=== PATIENT | male | born 1995 | race Caucasian/White ===

== ENCOUNTER 2018-10-28 18:37 | Emergency (ER) | payer OTHER ==
[~2018-10-28] VITALS: Ht 175.3 cm; Wt 97.5 kg
--- OUTSIDE RECORDS SUMMARY | 2018-10-28 18:40 | XMS REPORT | Summary of Care ---
Author Author Urgent Care [facility] Address Unknown Phone Unavailable Encounter MARGY Morales([place]) [id number] Date(s): 10/05/18 - 10/05/18 Urgent [facility] [address] [place] [address]- Discharge Disposition: Home or Self Care Attending Physician: Luis Lu DO Vital Signs Most recent to 1 oldest [Reference Range]: Height 175.26 cm (10/05/18 12:26 PM) Temperature Oral 98.2 DegF [96.4-99.1 DegF] (10/05/18 12:26 PM) Blood Pressure 113/71 mmHg [90-140/60-90 mmHg] (10/05/18 12:26 PM) Respiratory Rate 18 BRMIN [14-20 BRMIN] (10/05/18 12:26 PM) Peripheral Pulse 72 bpm Rate [60-100 bpm] (10/05/18 12:26 PM) Weight 98.636 kg (10/05/18 12:26 PM) Body Mass Index 32.11 m2 (10/05/18 12:26 PM) Problem List Condition Effective Dates Status Health Status Informant Anxiety(Confirmed) Active Chronic Active prostatitis(Confirme d) Left Resolved epididymitis(Confirm ed) Neuropathy(Confirmed Active ) Testicle Active pain(Confirmed) Treponemal Active infection(Confirmed) Vertigo(Confirmed) Active Allergies, Adverse Reactions, Alerts Substance Reaction Severity Status cephalosporins Active penicillins Active penciclovir topical PENICILLINS Active Medications clarithromycin 250 mg oral tablet 250 mg=1 tab, PO, Q12H, X 10 day, # 20 tab, 0 Refill(s), Pharmacy: [facility] [place] [facility] Start Date: 10/05/18 Stop Date: 10/15/18 Status: Ordered Results No data available for this section Immunizations No data available for this section Procedures Procedure Date Related Diagnosis Body Site Status Tonsillectomy1 Completed 1Had procedure in 2016 Social History Social History Type Response Employment/School Status: Employed. 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 Smoking Status Never smoker; Ready to change: No; Concerns about tobacco use in household: No; Exposure to Tobacco Smoke None; Cigarette Smoking Last 365 Days No; Reg Smoking Cessation Counseling No entered on: 10/05/18 Assessment and Plan No data available for this section
--- OUTSIDE RECORDS SUMMARY | 2018-10-28 18:40 | XMS REPORT | Summary of Care ---
Author Author [facility] Organization [facility] Address Unknown Phone Unavailable Encounter HQ Encntr_alinadia(FIN) [id number] Date(s): 09/08/18 - 09/09/18 [facility] [address], [address] [place] [address]- [phone] Vital Signs No data available for this section Problem List Condition Effective Dates Status Health Status Informant Anxiety(Confirmed) Active Chronic Active prostatitis(Confirme d) Left Resolved epididymitis(Confirm ed) Neuropathy(Confirmed Active ) Testicle Active pain(Confirmed) Treponemal Active infection(Confirmed) Vertigo(Confirmed) Active Allergies, Adverse Reactions, Alerts Substance Reaction Severity Status cephalosporins Active penicillins Active penciclovir topical PENICILLINS Active Medications No data available for this section Results No data available for this section Immunizations No data available for this section Procedures Procedure Date Related Diagnosis Body Site Status Tonsillectomy1 Completed 1Had procedure in 2016 Social History Social History Type Response Employment/School Status: Employed. 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 Smoking Status Never smoker; Ready to change: No; Concerns about tobacco use in household: No; Exposure to Tobacco Smoke None; Cigarette Smoking Last 365 Days No; Reg Smoking Cessation Counseling No entered on: 08/24/18 Assessment and Plan No data available for this section
--- OUTSIDE RECORDS SUMMARY | 2018-10-28 18:40 | XMS REPORT | Summary of Care ---
Author Author [facility] U[facility] Organization [facility] Address Unknown Phone Unavailable Encounter HQ Encntr_alias(FIN) [id number] Date(s): 08/09/18 - 08/10/18 [facility] [address] [place], [place] [address] Vital Signs No data available for this section Problem List Condition Effective Dates Status Health Status Informant Chronic Active prostatitis(Confirme d) Left Active epididymitis(Confirm ed) Allergies, Adverse Reactions, Alerts Substance Reaction Severity Status cephalosporins Active penicillins Active penciclovir topical PENICILLINS Active Medications No data available for this section Results No data available for this section Immunizations No data available for this section Procedures Procedure Date Related Diagnosis Body Site Status Tonsillectomy1 Completed 1Had procedure in 2016 Social History Social History Type Response Smoking Status Never smoker; Ready to change: No; Concerns about tobacco use in household: No; Exposure to Tobacco Smoke None; Cigarette Smoking Last 365 Days No; Reg Smoking Cessation Counseling No entered on: 07/29/18 Assessment and Plan No data available for this section
--- OUTSIDE RECORDS SUMMARY | 2018-10-28 18:40 | XMS REPORT | Summary of Care ---
Author Author Urgent Care [facility] Address Unknown Phone Unavailable Encounter MARGY Morales([place]) [id number] Date(s): 09/23/18 - 09/23/18 [facility] [address] [place] [address] [phone] Discharge Disposition: Home or Self Care Attending Physician: Jelly Stevenson MD Vital Signs Most recent to 1 oldest [Reference Range]: Height 175.26 cm (09/23/18 9:34 AM) Temperature Oral 98.2 DegF [96.4-99.1 DegF] (09/23/18 9:34 AM) Blood Pressure 123/78 mmHg [90-140/60-90 mmHg] (09/23/18 9:34 AM) Peripheral Pulse 67 bpm Rate [60-100 bpm] (09/23/18 9:34 AM) Weight 98.636 kg (09/23/18 9:34 AM) Body Mass Index 32.11 m2 (09/23/18 9:34 AM) Problem List Condition Effective Dates Status Health Status Informant Anxiety(Confirmed) Active Chronic Active prostatitis(Confirme d) Left Resolved epididymitis(Confirm ed) Neuropathy(Confirmed Active ) Testicle Active pain(Confirmed) Treponemal Active infection(Confirmed) Vertigo(Confirmed) Active Allergies, Adverse Reactions, Alerts Substance Reaction Severity Status cephalosporins Active penicillins Active penciclovir topical PENICILLINS Active Medications Azithromycin 5 Day Dose Pack 250 mg oral tablet See Instructions, Take 2 tablets by mouth the first day then 1 tablet by mouth d ays 2-5., X 5 day, # 6 tab, 0 Refill(s), Pharmacy: [facility] [place] [facility] Start Date: 09/23/18 Stop Date: 09/28/18 Status: Ordered Flonase 0.05 mg/inh nasal spray 2 spray, NASAL, Daily, in each nostril, # 16 gm, 0 Refill(s), Pharmacy: [facility] Start Date: 09/23/18 Status: Ordered Results No data available for this section Immunizations No data available for this section Procedures Procedure Date Related Diagnosis Body Site Status Tonsillectomy1 Completed 1Had procedure in 2016 Social History Social History Type Response Employment/School Status: Employed. 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 Smoking Status Never smoker; Ready to change: No; Concerns about tobacco use in household: No; Exposure to Tobacco Smoke None; Cigarette Smoking Last 365 Days No; Reg Smoking Cessation Counseling No entered on: 09/23/18 Assessment and Plan No data available for this section
--- OUTSIDE RECORDS SUMMARY | 2018-10-28 18:40 | XMS REPORT | Summary of Care ---
Author Author [facility] Organization [facility] Address Unknown Phone Unavailable Encounter HQ Encntr_alinadia(FIN) [id number] Date(s): 08/31/18 - 09/01/18 [facility] [address], [address] [place] [address]- [phone] Vital Signs No data available for this [...] Employment/School Status: Employed. 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 Smoking Status Never smoker; Ready to change: No; Concerns about tobacco use in household: No; Exposure to Tobacco Smoke None; Cigarette Smoking Last 365 Days No; Reg Smoking Cessation Counseling No entered on: 08/24/18 Assessment and Plan No data available for this section
--- OUTSIDE RECORDS SUMMARY | 2018-10-28 18:40 | XMS REPORT | Summary of Care ---
Author Author [facility] Organization [facility] Address Unknown Phone Unavailable Encounter HQ Encntr_alinadia(FIN) [id number] Date(s): 09/08/18 - 09/09/18 [facility] [address], [address] [place] [address]- [phone] Vital Signs No data available for this [...] Employment/School Status: Employed. 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 Smoking Status Never smoker; Ready to change: No; Concerns about tobacco use in household: No; Exposure to Tobacco Smoke None; Cigarette Smoking Last 365 Days No; Reg Smoking Cessation Counseling No entered on: 08/24/18 Assessment and Plan No data available for this section
--- OUTSIDE RECORDS SUMMARY | 2018-10-28 18:40 | XMS REPORT | Summary of Care ---
Author Author [facility] Organization [facility] Address Unknown Phone Unavailable Encounter MARGY Morales([place]) [id number] Date(s): 09/07/18 - 09/07/18 [facility] [address] [place] [address]- Discharge Disposition: Home or Self Care Attending Physician: Na Hansen DO Referring Physician: Na Hansen DO Vital Signs No data available for this [...] Employment/School Status: Employed. 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 Smoking Status Never smoker; Ready to change: No; Concerns about tobacco use in household: No; Exposure to Tobacco Smoke None; Cigarette Smoking Last 365 Days No; Reg Smoking Cessation Counseling No entered on: 08/24/18 Assessment and Plan No data available for this section
--- OUTSIDE RECORDS SUMMARY | 2018-10-28 18:40 | XMS REPORT | Summary of Care ---
Author Author [facility] Organization [facility] Address Unknown Phone Unavailable Encounter MARGY Morales([place]) [id number] Date(s): 10/17/18 - 10/17/18 [facility] [address] [place] [address]- [phone] Discharge Disposition: Home or Self Care Attending Physician: Jacqui Martinez MD Vital Signs Most recent to 1 oldest [Reference Range]: Height 175.26 cm (10/17/18 3:33 PM) Temperature Oral 98.3 DegF [96.4-99.1 DegF] (10/17/18 3:33 PM) Blood Pressure 113/76 mmHg [90-140/60-90 mmHg] (10/17/18 3:33 PM) Peripheral Pulse 73 bpm Rate [60-100 bpm] (10/17/18 3:33 PM) Weight 98.864 kg (10/17/18 3:33 PM) Body Mass Index 32.19 m2 (10/17/18 3:33 PM) Problem List Condition Effective Dates Status Health Status Informant Anxiety(Confirmed) Active Chronic Active prostatitis(Confirme d) Left Resolved epididymitis(Confirm ed) Neuropathy(Confirmed Active ) Testicle Active pain(Confirmed) Treponemal Active infection(Confirmed) Vertigo(Confirmed) Active Allergies, Adverse Reactions, Alerts Substance Reaction Severity Status cephalosporins Active penicillins Active penciclovir topical PENICILLINS Active Medications No Known Medications Results No data available for this section Immunizations No data available for this section Procedures Procedure Date Related Diagnosis Body Site Status Tonsillectomy1 Completed 1Had procedure in 2016 Social History Social History Type Response Employment/School Status: Employed. 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 Smoking Status Never smoker; Ready to change: No; Concerns about tobacco use in household: No; Exposure to Tobacco Smoke None; Cigarette Smoking Last 365 Days No; Reg Smoking Cessation Counseling No entered on: 10/17/18 Assessment and Plan No data available for this section
--- OUTSIDE RECORDS SUMMARY | 2018-10-28 18:40 | XMS REPORT | Summary of Care ---
Author Author [facility] Organization [facility] Address Unknown Phone Unavailable Encounter MARGY Morales(FIN) [id number] Date(s): 10/10/18 - 10/10/18 [facility] [address] [place] [address]- [phone] Attending Physician: Jacqui Martinez MD Vital Signs No data available for this [...] Employment/School Status: Employed. 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 Smoking Status Never smoker; Ready to change: No; Concerns about tobacco use in household: No; Exposure to Tobacco Smoke None; Cigarette Smoking Last 365 Days No; Reg Smoking Cessation Counseling No entered on: 10/05/18 Assessment and Plan No data available for this section
--- OUTSIDE RECORDS SUMMARY | 2018-10-28 18:40 | XMS REPORT | Continuity of Care Document ---
Author Author [facility] Interface Address Unknown Phone Unavailable Problems Problem Status Onset Date Classification Date Reported Comments Source TESTICLE PAIN Active 09/02/2018 [facility] TESTICLE PAIN Active 09/02/2018 [facility] RIGHT ABDOMINAL PAIN Active 05/08/2018 [facility] RIGHT ABDOMINAL PAIN Active 05/08/2018 [facility] Other specified disorders of the male genital organs 10/28/2017 01/05/2018 [facility] [place] N50.8 - OTHER SPECIFIED DISORDERS OF M Active 09/23/2017 [facility] [place] Anxiety Active Problem 10/19/2018 [facility], [facility] [place] Chronic prostatitis Active Problem 10/19/2018 [facility], [facility] [place] Left epididymitis Resolved Problem 10/19/2018 [facility], [facility] [place] Neuropathy Active Problem 10/19/2018 [facility], [facility] [place] Testicle pain Active Problem 10/19/2018 [facility], [facility] [place] Treponemal infection Active Problem 10/19/2018 [facility], [facility] [place] Vertigo Active Problem 10/19/2018 [facility], [facility] [place] Medications Medication Details Route Status Patient Instructions Ordering Provider Order Date Source clarithromycin 250 mg oral tablet 250 mg=1 tab, PO, Q12H, X 10 day, # 20 tab, 0 Refill(s), Pharmacy: [facility] [place] [facility] Active 10/05/2018 [facility] Fluticasone propionate 0.05 MG/ACTUAT Metered Dose Nasal [place] [Flonase] 2 spray, NASAL, Daily, in each nostril, # 16 gm, 0 Refill(s), Pharmacy: [facility] [place] [facility] Active 09/23/2018 [facility] Azithromycin 5 Day Dose Pack 250 mg oral tablet See Instructions, Take 2 tablets by mouth the first day then 1 tablet by mouth days 2-5., X 5 day, # 6 tab, 0 Refill(s), Pharmacy: [facility] [place] #3 Active 09/23/2018 [facility] doxycycline hyclate 100 MG Oral Capsule 100 mg=1 cap, PO, BID, 0 Refill(s) Active 08/24/2018 [facility] Ketorolac Tromethamine 10 MG Oral Tablet 10 mg=1 tab, PO, Q6H, X 5 day, # 20 tab, 0 Refill(s), Pharmacy: [facility] [place] #[facility] Active 08/20/2018 [facility] naproxen 500 mg oral enteric coated delayed-release tablet 500 mg=1 tab, PO, BID, PRN Pain, X 15 day, # 30 tab, 0 Refill(s), Pharmacy: [facility] Active 12/29/2017 [facility] clindamycin 300 mg oral capsule 300 mg=1 cap, PO, Q6H, X 10 day, # 40 cap, 0 Refill(s), Pharmacy: [facility] Active 12/29/2017 [facility] Allergies, Adverse Reactions, Alerts Substance Category Reaction Severity Reaction type Status Date Reported Comments Source cephalosporins Assertion Drug allergy Active [facility] penicillins Assertion Drug allergy Active [facility] penciclovir topical Assertion PENICILLINS Drug allergy Active [facility] Immunizations Immunization Date Given Site Status Last Updated Comments Source Results Order Name Results Value Reference Range Date Interpretation Comments Source Brain w/wo contrast MRI Brain w/wo contrast MRI Patient Name: ARAM NAVARRETE : 1995; Age: 23 years y/o Male MR: [id number] Study: Brain w/wo contrast MRI 09/29/2018 2:59 PM CDT Ordering Physician: Damir Franco MD Clinical Indication: - R20.2 Paresthesia of skin; Comparison: None TECHNIQUE: Multiplanar pre- and post-gadolinium contrast-enhanced MRI of the brain is performed. Contrast: 20 cc of gadolinium was administered. FINDINGS: The brain parenchyma is unremarkable. There is no evidence of acute intracranial hemorrhage, acute or subacute infarct, mass, focal edema, midline shift or extra-axial fluid collection. The ventricles and basilar cisterns are unremarkable. There is no abnormal meningeal or parenchymal enhancement. The craniocervical junction and midline structures are unremarkable. The central intracranial flow voids are maintained. The visualized orbits, paranasal sinuses and mastoids are unremarkable. IMPRESSION: 1. Unremarkable pre- and postcontrast MRI of the brain without evidence of acute intracranial process. SL: [id number] 09/29/2018 - - Read by: Danyell Cleary Dictated Date/time: 09/29/18 21:30 Electronically Signed by: Danyell Cleary 09/29/18 21:32 FINAL REPORT [facility] [place] Scrotal/Testicle w Doppler US Scrotal/Testicle w Doppler US Patient Name: ARAM NAVARRETE : 1995; Age: 23 years Male MR: [id number] Study: Scrotal/Testicle w Doppler US 09/07/2018 13:20 [employer] Clinical Indication: Left scrotal pain. COMPARISON: 09/29/2017 TECHNIQUE: Sonographic evaluation of the scrotum and testes was performed using high resolution B-mode imaging as well as pulse and color Doppler imaging. FINDINGS: TESTES: The right testicle measures 4.6 x 2.1 x 3.8 cm. The left testicle measures 4.7 x 2.1 x 3.6 cm. There is normal bilateral testicular contour and morphology. There are no testicular masses. There are no testicular calcifications. The Doppler images of the testicles show normal blood flow. EPIDIDYMIDES: Bilateral epididymal head, body and tail regions are normal. 5 mm right epididymal cyst. SCROTUM: There is no hydrocele. Bilateral varicoceles, some of the veins have no color flow. There is no scrotal edema. IMPRESSION: 1. Normal testicular Doppler blood flow. 2. Bilateral varicoceles, some of which do not demonstrate color flow. This could be secondary to thrombosed varicoceles, slow flow. SL: [id number] 09/07/2018 - - Read by: Guy See MD Dictated Date/time: 09/08/18 07:36 Electronically Signed by: Guy See MD 09/08/18 07:40 FINAL REPORT [facility] ED Abdomen/Pelvis IV contrast only CT ED Abdomen/Pelvis IV contrast only CT Patient Name: ARAM NAVARRETE : 1995; Age: 23 years y/o Male MR: [id number] * I. COMPUTED TOMOGRAPHY SCAN OF THE ABDOMEN with contrast. * II. COMPUTED TOMOGRAPHY SCAN OF THE PELVIS with contrast HISTORY: Right lower quadrant abdominal pain. COMPARISON: None TECHNIQUE: I. COMPUTED TOMOGRAPHY SCAN OF THE ABDOMEN with contrast: Helical CT images were obtained on a multidetector computed tomography scanner from the domes the diaphragms to the iliac crests following the intravenous administration of nonionic iodinated contrast. Oral contrast was not provided. II. COMPUTED TOMOGRAPHY SCAN OF THE PELVIS with contrast: Helical CT images were obtained on a multidetector computed tomography scanner from the iliac crests to the pubic symphysis following the intravenous administration of nonionic iodinated contrast. Oral contrast was not provided. Coronal and sagittal reconstructions were obtained. CT imaging performed at this location utilizes radiation dose optimization techniques which include one or more of the following: -Automated exposure control. -Adjustment of the mA and/or kV according to patient size. -Use of iterative reconstruction technique. CT radiation dose DLP: 1024 mGy-cm FINDINGS: There is no evidence of an acute intra-abdominal process. There is no free intraperitoneal gas, significant intra-abdominal fluid, or hemorrhage. There is a tiny (3 mm) right hepatic lobe cyst (image 21 of series 2). The liver, spleen, pancreas, and adrenal glands are otherwise normal in appearance. The kidneys are normal in size and show good, symmetrical enhancement without hydronephrosis. No calculi or focal renal lesions are visualized. The gastrointestinal structures are unremarkable. There is no evidence of obstruction or ileus. A normal appendix is visualized. There is no evidence of appendicitis. Evaluation of the gastrointestinal structures is limited due to lack of oral contrast. No mass or adenopathy is seen within the abdomen or pelvis. The aorta is normal in caliber. The visualized lung bases are clear. There are no pleural effusions. The heart is normal in size. There is no pericardial effusion. The osseous structures are unremarkable. IMPRESSION: 1. Negative computed tomography scan of the abdomen and pelvis. There is no evidence of an acute or significant focal intra-abdominal process. 2. Note is made of a tiny right hepatic cyst. SL: [id number] 05/08/2018 - - Read by: Zach Fraser MD Dictated Date/time: 05/08/18 15:10 Electronically Signed by: Zach Fraser MD 05/08/18 15:16 FINAL REPORT [facility] Scrotal/Testicle US Scrotal/Testicle US HISTORY: Right testicular pain and lump - N50.8 Testicular pain TECHNIQUE: Multiple huddleston scale and color flow Doppler sonographic images of the testicles were obtained. COMPARISON: None available. FINDINGS: The testicles demonstrate symmetric color flow. The testicles are normal in size, contour, and echogenicity. The right testicle measures 4.7 x 1.9 x 3.2 cm and the left testicle measures 4.4 x 1.9 x 3 cm. No evidence of intraparenchymal testicular mass. The epididymides are normal in size, contour, and echogenicity. There is a subcentimeter cyst versus spermatocele in the right epididymal head which corresponds to patient's region of palpable concern. IMPRESSION: Unremarkable sonographic evaluation of the testicles. [id number] 09/29/2017 - - Read by: Antione Desai MD Dictated Date/time: 09/29/17 17:28 Electronically Signed by: Antione Desai MD 09/29/17 17:29 FINAL REPORT [facility] Chest 2 views DX Chest 2 views DX Clinical Indication: - chest pain with inspiration. Comparison: None. Technique: PA and lateral chest radiographs FINDINGS: LUNGS: The lungs are well inflated. No interstitial or airspace opacities. No pleural effusions or pneumothorax. HEART AND MEDIASTINUM: The cardiomediastinal silhouette and pulmonary vascularity are within normal limits. The trachea is midline. OSSEOUS STRUCTURES: No acute abnormality seen. IMPRESSION: 1. No acute cardiopulmonary disease. SL: [id number] 05/14/2017 - - Read by: Issa Fields MD Dictated Date/time: 05/14/17 12:49 Electronically Signed by: Issa Fields MD 05/14/17 12:49 FINAL REPORT [facility] Vital Signs Vital Sign Value Date Comments Source Weight 98.864 10/17/2018 [facility] BMI Calculated 32.19 10/17/2018 [facility] Height 175.26 cm 10/17/2018 [facility] Temperature Oral (F) 98.3 F 10/17/2018 [facility] Heart Rate 73 10/17/2018 [facility] Systolic (mm Hg) 113 10/17/2018 [facility] Diastolic (mm Hg) 76 10/17/2018 [facility] BMI Calculated 32.11 10/05/2018 [facility] Height 175.26 cm 10/05/2018 [facility] Weight 98.636 10/05/2018 [facility] Temperature Oral (F) 98.2 F 10/05/2018 [facility] Respitory Rate 18 10/05/2018 [facility] Heart Rate 72 10/05/2018 [facility] Systolic (mm Hg) 113 10/05/2018 [facility] Diastolic (mm Hg) 71 10/05/2018 [facility] BMI Calculated 32.11 09/23/2018 [facility] Weight 98.636 09/23/2018 [facility] Height 175.26 cm 09/23/2018 [facility] Temperature Oral (F) 98.2 F 09/23/2018 [facility] Heart Rate 67 09/23/2018 [facility] Systolic (mm Hg) 123 09/23/2018 [facility] Diastolic (mm Hg) 78 09/23/2018 [facility] BMI Calculated 32.7 08/24/2018 [facility] Weight 100.455 08/24/2018 [facility] Height 175.26 cm 08/24/2018 [facility] Temperature Oral (F) 98.5 F 08/24/2018 [facility] Respitory Rate 14 08/24/2018 [facility] Systolic (mm Hg) 126 08/24/2018 [facility] Diastolic (mm Hg) 78 08/24/2018 [facility] Heart Rate 76 08/24/2018 [facility] BMI Calculated 31.59 12/29/2017 [facility] Height 175.26 cm 12/29/2017 [facility] Weight 97.045 12/29/2017 [facility] Respitory Rate 16 12/29/2017 [facility] Temperature Oral (F) 98.0 F 12/29/2017 [facility] Systolic (mm Hg) 126 12/29/2017 [facility] Diastolic (mm Hg) 67 12/29/2017 [facility] Heart Rate 85 12/29/2017 [facility] Encounters Location Location Details Encounter Type Encounter Number Reason For Visit Attending Provider ADM Date DC Date Status Source Outpatient [id number] MER JUINOR 05/07/2017 Active [facility] Outpatient [id number] EDVIN MENDEZ 05/14/2017 Active [facility] [place] [facility] [id number] Romulo Conway 09/29/2017 09/30/2017 [facility] [place] Outpatient [id number] JODI REGAN 12/29/2017 Active [facility] Outpatient [id number] Mer Junior 12/29/2017 12/30/2017 [facility] Outpatient [id number] JODI ISMAIL 04/20/2018 Active [facility] Outpatient [id number] JELLY JETT 05/08/2018 Active [facility] Outpatient [id number] JODI ISMAIL 06/06/2018 Active [facility] Outpatient [id number] LUIS KOTHARIEN 06/28/2018 Active [facility] Outpatient [id number] ORA ODOM 07/29/2018 Active [facility] Urology [facility] Phone Message [id number] 08/09/2018 08/11/2018 [facility] Phone Message [id number] 08/17/2018 08/19/2018 [facility] Outpatient [id number] MERE WHALEN 08/24/2018 Active [facility] [place] Outpatient [id number] Mere Walshh 08/24/2018 08/25/2018 [facility] Primary [facility] Phone Message [id number] 08/31/2018 09/02/2018 [facility] Outpatient [id number] Mere Walshh 09/07/2018 09/08/2018 [facility] Between Visit [id number] 09/08/2018 09/09/2018 [facility] Between Visit [id number] 09/08/2018 09/09/2018 [facility] Between Visit [id number] 09/08/2018 09/09/2018 [facility] Outpatient [id number] WILLIS GEORGE 09/23/2018 Active [facility] [place] Outpatient [id number] Jelly Jett 09/23/2018 09/24/2018 [facility] Group [facility] [place] [facility] [id number] Damir Franco II 09/29/2018 09/30/2018 [facility] [place] Outpatient [id number] Luis Mcdonald 10/05/2018 Active [facility] [place] Outpatient [id number] Smith Mcdonald 10/05/2018 10/06/2018 [facility] Outpatient [id number] Firas Quddos 10/10/2018 Active [facility] [place] Ambulatory Pre-Reg [id number] Firas Quddos 10/10/2018 10/10/2018 [facility] Outpatient [id number] Firas Quddos 10/17/2018 Active [facility] [place] Outpatient [id number] Firas Quddos 10/17/2018 10/18/2018 [facility] Procedures Procedure Code Date Perfomer Comments Source Tonsillectomy<sup>1</sup> 403288743 Had procedure in 2016 [facility] Tonsillectomy<sup>1</sup> [id number] Had procedure in 2016 [facility] Tonsillectomy<sup>1</sup> [id number] Had procedure in 2016 [facility] Tonsillectomy<sup>1</sup> [id number] Had procedure in 2016 [facility] [place]
--- OUTSIDE RECORDS SUMMARY | 2018-10-28 18:40 | XMS REPORT | Summary of Care ---
Author Author [facility] Organization [facility] Address Unknown Phone Unavailable Encounter HQ Encntr_alinadia(FIN) [id number] Date(s): 09/08/18 - 09/09/18 [facility] [address], [address] [place] [address]- [phone] Vital Signs No data available for this [...] Employment/School Status: Employed. 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 Smoking Status Never smoker; Ready to change: No; Concerns about tobacco use in household: No; Exposure to Tobacco Smoke None; Cigarette Smoking Last 365 Days No; Reg Smoking Cessation Counseling No entered on: 08/24/18 Assessment and Plan No data available for this section
--- OUTSIDE RECORDS SUMMARY | 2018-10-28 18:40 | XMS REPORT | Summary of Care ---
Author Author [facility] Organization [facility] Address Unknown Phone Unavailable Encounter HQ Nicontr_jayne(FIN) [id number] Date(s): 08/17/18 - 08/18/18 [facility] U[facility] [address] [place], [place] [address] Vital Signs No data available for this section Problem List Condition Effective Dates Status Health Status Informant Chronic Active prostatitis(Confirme d) Left Active epididymitis(Confirm ed) Allergies, Adverse Reactions, Alerts Substance Reaction Severity Status cephalosporins Active penicillins Active penciclovir topical PENICILLINS Active Medications ketOROLAC 10 mg oral tablet 10 mg=1 tab, PO, Q6H, X 5 day, # 20 tab, 0 Refill(s), Pharmacy: [facility] [place] [facility] Start Date: 08/19/18 Stop Date: 08/24/18 Status: Ordered Results No data available for [...]
--- OUTSIDE RECORDS SUMMARY | 2018-10-28 18:40 | XMS REPORT | Summary of Care ---
Author Author [facility] [place] Organization [facility] [place] Address Unknown Phone Unavailable Encounter HQ Jose Mr_jayne(FIN) [id number] Date(s): 09/29/17 - 09/29/17 [facility] [place] [address] [place], [place] [address] [phone] Encounter Diagnosis Other specified disorders of the male genital organs (Final) - 10/27/17 Discharge Disposition: Home or Self Care Attending Physician: Romulo Conway MD Vital Signs No data available for this section Problem List No data available for this section Allergies, Adverse Reactions, Alerts Substance Reaction Severity Status cephalosporins Active penicillins Active penciclovir topical PENICILLINS Active Medications No data available for this section Results No data available for this section Immunizations No data available for this section Procedures Procedure Date Related Diagnosis Body Site Status Tonsillectomy1 Completed 1Had procedure in 2016 Social History Social History Type Response Smoking Status Never smoker; Exposure to Tobacco Smoke None; Cigarette Smoking Last 365 Days No; Reg Smoking Cessation Counseling No entered on: 12/29/17 Assessment and Plan No data available for this section
--- OUTSIDE RECORDS SUMMARY | 2018-10-28 18:40 | XMS REPORT | Summary of Care ---
Author Author [facility] Primary Care [place] [facility] Organization [facility] Primary [facility] Address Unknown Phone Unavailable Encounter MARGY Morales(FIN) [id number] Date(s): 12/29/17 - 12/29/17 [facility] Primary [facility] [address] [place], [place] [address] [phone] Discharge Disposition: Home or Self Care Attending Physician: Davy Junior MD Vital Signs Most recent to 1 oldest [Reference Range]: Height 175.26 cm (12/29/17 2:11 PM) Temperature Oral 98.0 DegF [96.4-99.1 DegF] (12/29/17 2:11 PM) Blood Pressure 126/67 mmHg [90-140/60-90 mmHg] (12/29/17 2:11 PM) Respiratory Rate 16 BRMIN [14-20 BRMIN] (12/29/17 2:11 PM) Peripheral Pulse 85 bpm Rate [60-100 bpm] (12/29/17 2:11 PM) Weight 97.045 kg (12/29/17 2:11 PM) Body Mass Index 31.59 m2 (12/29/17 2:11 PM) Problem List No data available for this section Allergies, Adverse Reactions, Alerts Substance Reaction Severity Status cephalosporins Active penicillins Active penciclovir topical PENICILLINS Active Medications clindamycin 300 mg oral capsule 300 mg=1 cap, PO, Q6H, X 10 day, # 40 cap, 0 Refill(s), Pharmacy: [facility] Start Date: 12/29/17 Stop Date: 01/08/18 Status: Ordered naproxen 500 mg oral enteric coated delayed-release tablet 500 mg=1 tab, PO, BID, PRN Pain, X 15 day, # 30 tab, 0 Refill(s), Pharmacy: [facility] Start Date: 12/29/17 Stop Date: 01/13/18 Status: Ordered Results No data available for [...]
--- OUTSIDE RECORDS SUMMARY | 2018-10-28 18:40 | XMS REPORT | Summary of Care ---
Author Author [facility] Organization [facility] Address Unknown Phone Unavailable Encounter HQ Carmen(FIN) [id number] Date(s): 08/24/18 - 08/24/18 [facility] [address], [address] [place] [address]- [phone] Discharge Disposition: Home or Self Care Attending Physician: Na Hansen DO Vital Signs Most recent to 1 oldest [Reference Range]: Height 175.26 cm (08/24/18 11:26 AM) Temperature Oral 98.5 DegF [96.4-99.1 DegF] (08/24/18 11:26 AM) Blood Pressure 126/78 mmHg [90-140/60-90 mmHg] (08/24/18 11:26 AM) Respiratory Rate 14 BRMIN [14-20 BRMIN] (08/24/18 11:26 AM) Peripheral Pulse 76 bpm Rate [60-100 bpm] (08/24/18 11:26 AM) Weight 100.455 kg (08/24/18 11:26 AM) Body Mass Index 32.7 m2 (08/24/18 11:26 AM) Problem List Condition Effective Dates Status Health Status Informant Anxiety(Confirmed) Active Chronic Active prostatitis(Confirme d) Left Resolved epididymitis(Confirm ed) Neuropathy(Confirmed Active ) Testicle Active pain(Confirmed) Treponemal Active infection(Confirmed) Vertigo(Confirmed) Active Allergies, Adverse Reactions, Alerts Substance Reaction Severity Status cephalosporins Active penicillins Active penciclovir topical PENICILLINS Active Medications doxycycline hyclate 100 mg oral capsule 100 mg=1 cap, PO, BID, 0 Refill(s) Start Date: 08/24/18 Status: Ordered Results No data available for this section Immunizations No data available for this section Procedures Procedure Date Related Diagnosis Body Site Status Tonsillectomy1 Completed 1Had procedure in 2016 Social History Social History Type Response Employment/School Status: Employed. 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 Smoking Status Never smoker; Ready to change: No; Concerns about tobacco use in household: No; Exposure to Tobacco Smoke None; Cigarette Smoking Last 365 Days No; Reg Smoking Cessation Counseling No entered on: 08/24/18 Assessment and Plan No data available for this section
--- OUTSIDE RECORDS SUMMARY | 2018-10-28 18:40 | XMS REPORT | Summary of Care ---
Author Author [facility] Outpatient Imaging [facility] [place] Address Unknown Phone Unavailable Encounter HQ Carmen(FIN) [id number] Date(s): 09/29/18 - 09/29/18 [facility] [place] [address] [place], [place] [address]- [phone] Discharge Disposition: Home or Self Care Attending Physician: Damir Serrano MD Referring Physician: Damir Serrano MD Vital Signs No data available for [...] Employment/School Status: Employed. 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 Smoking Status Never smoker; Ready to change: No; Concerns about tobacco use in household: No; Exposure to Tobacco Smoke None; Cigarette Smoking Last 365 Days No; Reg Smoking Cessation Counseling No entered on: 09/23/18 Assessment and Plan No data available for this section
[2018-10-28] MEDS ORDERED: LORAZEPAM 1 MG TAB PO ONE (19:00)
--- NOTE | 2018-10-28 19:07 | NUR ---
ENTERED PTS ROOM WITH PO ATIVAN, PT VERY ANXIOUS STATES "IS THAT XANAX" PT TOLD ITS ATIVAN AND VERY SIMILAR TO XANAX
[2018-10-28 21:02] VITALS: BP 145/81
== END 2018-10-28 21:11 | disposition home or self-care (01) ==
LOC: ER 18:37
DX: F41.1 Generalized anxiety disorder (principal); R00.0 Tachycardia, unspecified
CPT/HCPCS: 93005; 99282